=== PATIENT | female | born 1995 | race Hispanic/Latino ===

== ENCOUNTER 2019-03-12 21:16 | Observation (INO) | payer SELFPAY ==
[~2019-03-12] VITALS: Ht 170.2 cm; Wt 117.9 kg
[2019-03-12 22:03] LABS: BASOPHILS # (AUTO) 0.1 (0.0-0.1); BASOPHILS % 0.9 % (0.0-1.0); EOSINOPHILS # (AUTO) 0.1 (0.0-0.4); EOSINOPHILS % 1.9 % (0.0-6.0); HEMATOCRIT 24.3 % (34.2-44.1); LYMPHOCYTES # (AUTO) 2.5 (1.0-3.2); LYMPHOCYTES % 36.9 % (18.0-39.1); MEAN CORPUSCULAR HEMOGLOBIN 15.4 pg (28-32); MEAN CORPUSCULAR HGB CONC 25.9 g/dL (31-35); MEAN CORPUSCULAR VOLUME 59.3 fL (81-99); MONOCYTES # (AUTO) 0.6 (0.2-0.8); MONOCYTES % 9.2 % (4.4-11.3); NEUTROPHILS # (AUTO) 3.5 (2.1-6.9); PLATELET COUNT 321 x10e3/uL (140-360); RED CELL DISTRIBUTION WIDTH 22.4 % (11.7-14.4)
[2019-03-12 22:06] LABS: HEMOGLOBIN 6.3 g/dL (12.0-16.0)
--- NOTE | 2019-03-12 22:06 | NUR ---
DR. MELGAR AND Sheila STEWART RN NOTIFIED AND AWARE OF CRITICAL LAB VALUE; HGB 6.3.
[2019-03-12 22:15] LABS: ALANINE AMINOTRANSFERASE 15 IU/L (0-55); ALBUMIN 3.3 g/dL (3.5-5.0); ALBUMIN/GLOBULIN RATIO 0.8 (0.8-2.0); ALKALINE PHOSPHATASE 93 IU/L (40-150); ANION GAP 12.8 mmol/L (8-16); BLOOD UREA NITROGEN 13 mg/dL (7-26); BUN/CREATININE RATIO 19 (6-25); CALCIUM 8.8 mg/dL (8.4-10.2); CARBON DIOXIDE 25 mmol/L (22-29); CHLORIDE 104 mmol/L (98-107); CREATINE KINASE 31 IU/L (29-168); CREATININE, SERUM 0.69 mg/dL (0.57-1.11); EST GLOMERULAR FILTRATION RATE > 60 ML/MIN (60-); GLUCOSE 88 mg/dL (74-118); POTASSIUM 3.8 mmol/L (3.5-5.1); SODIUM 138 mmol/L (136-145)
[2019-03-12] MEDS ORDERED: ASPIRIN 81 MG CHEW TAB PO ONE (22:15)
[2019-03-12] MEDS ORDERED: SODIUM CHLORIDE 0.9% 250ML 250 ML IV ONE (22:15)
--- NOTE | 2019-03-12 22:41 | Diagnostic Imaging Report ---
Examination: CT head without contrast Clinical Indication: Dizziness. Technique: Transaxial noncontrast images from the skull base through the vertex were obtained. Sagittal and coronal reformatted images were done. Dose modulation, iterative reconstruction, and/or weight based adjustment of the mA/kV was utilized to reduce the radiation dose to as low as reasonably achievable. Comparison: None. Findings: Scalp: No abnormalities. Bones: Intact. No fractures. No blastic or lytic lesions. Brain sulci: Appropriate for patient's age. Ventricles: Normal in size and configuration. No hydrocephalus. Extra-axial space: No abnormalities. Parenchyma: No abnormal densities. No masses, hemorrhage, or acute or chronic cortical based vascular insults. Suprasellar region: No abnormalities. Craniocervical junction: The foramen magnum is patent. No Chiari one malformation. Impression: No intracranial abnormality. Signed by: Dr. Nalini Block M.D. on 03/12/2019 10:38 PM
--- OUTSIDE RECORDS SUMMARY | 2019-03-12 23:02 | XMS REPORT ---
Author Author [facility] Address Unknown Phone Unavailable Care Team Providers Care Hauling Contractor Name Role Phone RAMÓN YO Unavailable Unavailable Problems This patient has no known problems. Allergies, Adverse Reactions, Alerts This patient has no known allergies or adverse reactions. Medications This patient has no known medications. Results Test Description Test Time Test Comments Text Results Atomic Results Result Comments CT BRAIN WO 2019-03-12 22:36:00 [place] [address] Patient Name: CHRIS HUGGINS MR #: [id number] : 1995 Age/Sex: 23/F Req #: [id number] Adm Physician: Ordered by: YO MELGAR DO Report #: [id number] Location: ER Room/Bed: Procedure: [id number] CT/CT BRAIN WO Exam Date: Exam Time: REPORT STATUS: Signed Examination: CT head without contrast Clinical Indication: Dizziness. Tech nique: Transaxial noncontrast images from the skull base through the vertex were obtained. Sagittal and coronal reformatted images were done. Dose modulation, iterative reconstruction, and/or weight based adjustment of the mA/kV was utilized to reduce the radiation dose to as low as reasonably achievable. Comparison: None. Findings: Scalp: No abnormalities. Bones: Intact. No fractures. No blastic or lytic lesions. Brain sulci: Appropriate for patient's age. Ventricles: Normal in size and configuration. No hydrocephalus. Extra-axial space: No abnormalities. Parenchyma: No abnormal densities. No masses, hemorrhage, or acute or chronic cortical based vascular insults. Suprasellar region: No abnormalities. Craniocervical junction: The foramen magnum is patent. No Chiari one malformation. Impression: No intracranial abnormality. Signed by: Dr. Nalini Block M.D. on 03/12/2019 10:38 PM Dictated By: NALINI PEARSON MD 37 Transcribed By: NORIS on 03/12/192237 COPY TO: YO MELGAR DO
--- NOTE | 2019-03-12 23:17 | Diagnostic Imaging Report ---
EXAMINATION: CHEST SINGLE (PORTABLE) INDICATION: CHEST PAIN COMPARISON: None FINDINGS: TUBES and LINES: None. LUNGS: Lungs are well inflated. There are bibasilar atelectasis. There is no evidence of pneumonia or pulmonary edema. PLEURA: No pleural effusion or pneumothorax. HEART AND MEDIASTINUM: Cardiac size is mildly enlarged. BONES AND SOFT TISSUES: No acute osseous lesion. Soft tissues are unremarkable. UPPER ABDOMEN: No free air under the diaphragm. IMPRESSION: No acute thoracic abnormality. Signed by: Dr. Sheila Tate M.D. on 03/12/2019 11:13 PM
[2019-03-12 23:20] LABS: BILIRUBIN,URINE NEGATIVE (NEGATIVE); CLARITY,URINE CLOUDY (CLEAR); COLOR,URINE YELLOW (YELLOW); KETONES,URINE NEGATIVE (NEGATIVE); LEUKOCYTE ESTERASE ,URINE NEGATIVE (NEGATIVE); NITRITE,URINE POSITIVE (NEGATIVE); PROTEIN,URINE DIPSTICK NEGATIVE (NEGATIVE); URINE UROBILINOGEN 0.2 mg/dL (0.2 - 1)
[2019-03-12 23:33] LABS: AMPHETAMINES SCREEN,URINE NEGATIVE (NEGATIVE); BENZODIAZEPINES SCREEN,URINE NEGATIVE (NEGATIVE); PHENCYCLIDINE SCREEN,URINE NEGATIVE (NEGATIVE)
[2019-03-12 23:44] LABS: BACTERIA,URINE MANY /HPF
[2019-03-12 23:45] LABS: EPITHELIAL CELLS,URINE MODERATE /LPF
[2019-03-13] VITALS (9 sets, daily range): BP systolic 129–137; BP diastolic 69–80
--- NOTE | 2019-03-13 00:05 | NUR ---
Patient received from ER via stretcher accompanied by her mother. AAO x 4. Patient had no complaints of pain. Respirations even and non-labored. Admission history obtained. Initial physical assessment performed. Patient oriented to room, call light and plan of care. Fall precautions implemented. Patient instructed to call for assistance when needed. Call light within reach.
--- NOTE | 2019-03-13 00:20 | NUR ---
Patient informed of Blood transfusion due to low Hgb count (6.3). Patient voluntarily signed "Disclosure and Consent" form.
--- NOTE | 2019-03-13 02:34 | NUR ---
Blood products for transfusion not ready yet because there needs to be another waste minimization technician to verify blood product with the waste minimization technician currently working at the lab. Reason: New patient has not been cross-typed in this hospital before. Nursing metal cans supervisor notified of delay and informed Nurse that a laboratory sampler is on their way to the hospital to verify the blood shortly. Nurse awaiting verification.
--- NOTE | 2019-03-13 04:30 | NUR ---
All Around Gear Machine Operator called to confirm verification /tile picker of blood product.
[2019-03-13] MEDS ORDERED: SODIUM CHLORIDE 0.9% 250ML 250 ML ONE ×2 (04:42→17:16)
--- NOTE | 2019-03-13 05:00 | NUR ---
Blood transfusion started after bedside side verification with Nurse (Marija). Will continue to monitor.
[2019-03-13 05:25] LABS: CREATINE KINASE 21 IU/L (29-168)
[2019-03-13 05:45] LABS: % IRON SATURATION 2 % (15-50); IRON 10 ug/dL (50-170); TOTAL IRON BINDING CAPACITY 428 ug/dL (261-478); TRANSFERRIN 306 mg/dL (180-382)
[2019-03-13 06:05] LABS: FERRITIN < 1.00 ng/mL (4.63-204.00)
--- NOTE | 2019-03-13 06:23 | NUR ---
Dr. Cat paged regarding "Routine Consult". Reason: Anemia. Awaiting call back.
--- NOTE | 2019-03-13 07:00 | NUR ---
Blood transfusion completed. No adverse reaction noted. Vital signs WNL.
--- NOTE | 2019-03-13 07:00 | NUR ---
BEDSIDE SHIFT REPORT RECEIVED FROM THE OLEOMARGARINE MAKER RN. EDUCATED PT ABOUT FALL PRECAUTIONS. BED IS LOW AND LOCKED. CALL LIGHT WITH IN EASY REACH. INFORMED PT TO CALL FOR ANY NEEDS. PT VERBALIZED UNDERSTANDING. PT IS RECEIVING BLOOD TRANSFUSION AT THE MOMENT. 1 UNIT FINISHED PER THE OLEOMARGARINE MAKER RN. PT DENIES NEEDS AT THIS TIME.
--- NOTE | 2019-03-13 07:15 | NUR ---
Shift report given to oncoming nurse.
--- NOTE | 2019-03-13 08:04 | NUR ---
H&P cc: fatigue HPI: 23yoF, PCP none, developed fatigue, found to have severe anemia. Pt has had blood transfusion in past. Does have heavy menses, using about 5 pads per day for 7 days; No melena/hematochezia PMH: chronic anemia, menorrhagia PSHx: femur, gastric bypass Allergies; see emr FH/SH; single; no cigs; occ etoh meds; see MAR ROS: no f/c/s/N/V/D/SAMSON/vision changes/cp/sob/skin rash v/s; revd PE" tired appearing anicteric ns1s2 mod bs soft nt nd no e/t awake skin dry flat affect labs/meds; revd A/P: 23yoF Severe anemia Iron deficiency- severe Low vitB12 UTI Severe obesity BMI 40.7 PLAN IV iron IV vitB12 Blood stool occult blood Ceftriaxone for UTI SCd; PPI DIspo: Mahamed Ocampo MD, PhD
[2019-03-13 08:44] LABS: CHOL/HDL RATIO 3.7 (3.0-3.6)
[2019-03-13] MEDS ORDERED: SODIUM FERRIC GLUCONATE COMPLX 125 MG in SODIUM CHLORIDE 0.9% 100 ML 100 ML IV SCH ×3 (09:00→20:00)
[2019-03-13] MEDS: PANTOPRAZOLE 40 MG 10ML VIAL IV SCH (09:01)
[2019-03-13] MEDS: CEFTRIAXONE SOD 1 GM/NS 50 ML 50 ML IV SCH (09:05)
[2019-03-13] MEDS ORDERED: IRON DEXTRAN INJ 500 MG in SODIUM CHLORIDE 0.9% 500ML 500 ML IV PRN ×2 (09:15→13:30)
[2019-03-13] MEDS: CYANOCOBALAMIN INJ 1,000 MCG/ML VIAL IM SCH (10:00)
[2019-03-13 10:17] LABS: BASOPHILS % 0.4 % (0.0-1.0); EOSINOPHILS # (AUTO) 0.1 (0.0-0.4); EOSINOPHILS % 1.8 % (0.0-6.0); HEMATOCRIT 25.7 % (34.2-44.1); LYMPHOCYTES # (AUTO) 1.5 (1.0-3.2); LYMPHOCYTES % 33.9 % (18.0-39.1); MEAN CORPUSCULAR HEMOGLOBIN 16.3 pg (28-32); MEAN CORPUSCULAR HGB CONC 26.5 g/dL (31-35); MEAN CORPUSCULAR VOLUME 61.6 fL (81-99); MONOCYTES # (AUTO) 0.5 (0.2-0.8); MONOCYTES % 10.6 % (4.4-11.3); NEUTROPHILS # (AUTO) 2.4 (2.1-6.9); NEUTROPHILS % 53.1 % (38.7-80.0); PLATELET COUNT 301 x10e3/uL (140-360); RED BLOOD COUNT 4.17 x10e6/uL (3.6-5.1); RED CELL DISTRIBUTION WIDTH 25.3 % (11.7-14.4)
[2019-03-13 10:23] LABS: HEMOGLOBIN 6.8 g/dL (12.0-16.0)
[2019-03-13] MEDS ORDERED: DIPHENHYDRAMINE HCL INJ 25 MG in SODIUM CHLORIDE 0.9% 50ML 50 ML IV ONE ×2 (10:30→16:00)
[2019-03-13] MEDS ORDERED: FAMOTIDINE INJ 20 MG in SODIUM CHLORIDE 0.9% 50ML 50 ML IV ONE ×2 (10:30→16:00)
[2019-03-13] MEDS ORDERED: DEXAMETHASONE PHOS 10MG INJ 20 MG in SODIUM CHLORIDE 0.9% 50ML 50 ML IV ONE ×2 (11:00→16:30)
--- NOTE | 2019-03-13 11:10 | NUR ---
PAGED DR. ROSE REGARDING PRN TYLENOL, BENADRYL AND LASIX . NEW ORDER RECEIVED.
[2019-03-13 11:26] LABS: ANISOCYTOSIS SLIGHT; ELLIPTOCYTE, RBC SLIGHT; OVALOCYTES MODERATE; PLATELET ESTIMATE ADEQUATE; POIKILOCYTOSIS MODERATE; POLYCHROMASIA FEW
[2019-03-13] MEDS ORDERED: IRON DEXTRAN INJ 50 MG in SODIUM CHLORIDE 0.9% 100 ML IV ONE ×2 (11:30→17:00)
[2019-03-13] MEDS ORDERED: ACETAMINOPHEN 325 MG TAB PO PRN (11:30)
[2019-03-13] MEDS ORDERED: DIPHENHYDRAMINE HCL 25 MG CAP PO PRN (11:30)
--- NOTE | 2019-03-13 11:30 | NUR ---
PAGED LAB REGARDING SECOND UNIT OF BLOOD TRANSFUSION. BLOOD IS READY TO FARM OR RANCH ANIMAL CARETAKER PER LAB.
[2019-03-13] MEDS ORDERED: FUROSEMIDE INJ 10 MG/ML 2 ML VIAL IV ONE (12:00)
--- NOTE | 2019-03-13 12:00 | NUR ---
BLOOD PRODUCT VERIFIED AT THE LAB WITH SOILS TECHNICIAN.
--- NOTE | 2019-03-13 12:10 | NUR ---
PRIOR BLOOD TRANSFUSION VERIFICATION COMPLETED WITH TYSON PAZ.
--- NOTE | 2019-03-13 12:20 | NUR ---
BLOOD TRANSFUSION STARTED AFTER BEDSIDE VERIFICATION. PT DENIES NEEDS AT THIS TIME.
--- NOTE | 2019-03-13 14:53 | NUR ---
GAVE PACKET OF INFORMATION WITH [facility] [employer] FOR ASSISTANCE WITH LOW TO NO INCOME TO PATIENT. RESOURCES THAT PATIENT MAY BE ABLE TO FOLLOW UP UPON DISCHARGE. PT EDUCATED ON EACH RESOURCE AND UNDERSTANDING HOW TO FOLLOW UP TO SEE IF QUALIFIED FOR EACH RESOURCE.
--- NOTE | 2019-03-13 15:50 | NUR ---
BLOOD TRANSFUSION COMPLETED. NO ADVERSE REACTION NOTED. PT AAOX4. DENIES NEEDS AT THIS TIME.
[2019-03-13] MEDS ORDERED: FUROSEMIDE INJ 10 MG/ML 2 ML VIAL IV SCH (16:15)
[2019-03-13 18:24] LABS: CREATINE KINASE 17 IU/L (29-168)
--- NOTE | 2019-03-13 18:40 | NUR ---
PAGED DR. ROSE TO CONFIRM FERRLECIT SINCE IRON DEXTRAN ALREADY SCHEDULED FOR PT. CANCEL FERRLECIT PER DR. ROSE. INFORMED THE SAME TO PHARMACY.
--- NOTE | 2019-03-13 19:00 | NUR ---
BEDSIDE SHIFT REPORT GIVEN TO THE ROLL WINDER RN. PT DENIED FURTHER NEEDS.
[2019-03-14] VITALS: BP 144/72
[2019-03-14 04:51] VITALS: BP 120/69
[2019-03-14] MEDS ORDERED: VITAMIN B-121000 MC1 PO (06:19)
[2019-03-14] MEDS ORDERED: KEFLEX500 MG PO (06:19)
[2019-03-14] MEDS ORDERED: VITAMIN C500 M2 PO (06:19)
[2019-03-14] MEDS ORDERED: FERROUS SULFAT325 M1 PO (06:19)
[2019-03-14] MEDS ORDERED: PEPCID20 MG PO (06:19)
--- NOTE | 2019-03-14 06:21 | NUR ---
D/C summary Principal Dx: Severe anemia Iron deficiency- severe Low vitB12 UTI Severe obesity BMI 40.7 Secondary dx: Anemia PLAN IV iron IV vitB12 Blood stool occult blood Ceftriaxone for UTI SCd; PPI DIspo: d/c home f/u [facility] 1 week stable d/c>35mins Mahamed Ocampo MD, PhD
--- NOTE | 2019-03-14 07:00 | NUR ---
BEDSIDE SHIFT REPORT RECEIVED FROM THE RACE CAR MECHANIC RN. PT IS AAOX4. EDUCATED PT ABOUT FALL PRECAUTIONS. PT VERBALIZED UNDERSTANDING. CALL LIGHT WITH IN EASY REACH. BED IS LOW AND LOCKED. SIDE RAILS X2. PT DENIES NEEDS AT THIS TIME.
[2019-03-14 07:31] LABS: HEMATOCRIT 32.3 % (34.2-44.1); HEMOGLOBIN 8.8 g/dL (12.0-16.0)
[2019-03-14 08:00] VITALS: BP 140/90
[2019-03-14 08:47] VITALS: BP 140/90
[2019-03-14] MEDS ORDERED: CYANOCOBALAMIN INJ 1,000 MCG/ML VIAL IM SCH (09:00)
[2019-03-14] MEDS: CEFTRIAXONE SOD 1 GM/NS 50 ML 50 ML IV SCH (09:15)
[2019-03-14] MEDS: PANTOPRAZOLE 40 MG 10ML VIAL IV SCH (09:39)
[2019-03-14] MEDS: CYANOCOBALAMIN INJ 1,000 MCG/ML VIAL IM SCH (09:43)
--- NOTE | 2019-03-14 10:15 | NUR ---
IRON DEXTRAN 500 ML TRANSFUSION STARTED. PT DENIES NEEDS AT THIS TIME.
[2019-03-14 12:00] VITALS: BP 144/85
--- NOTE | 2019-03-14 12:45 | NUR ---
PAGED DR. ROSE AND REPORTED THE LAB VALUES.
--- NOTE | 2019-03-14 14:49 | NUR ---
PAGED DR. POWELL REGARDING PT DISCHARGE. WAITING FOR THE RESPONSE.
--- NOTE | 2019-03-14 15:30 | NUR ---
IRON TRANSFUSION COMPLETED. PT TOLERATED WELL. DENIES NEEDS AT THIS TIME. FAMILY AT BEDSIDE.
--- NOTE | 2019-03-14 15:45 | NUR ---
PAGED DR. ROSE TO CONFIRM THE D/C ORDER. CONDITIONAL D/C PER THE ORDER. WAITING FOR THE RESPONSE.
[2019-03-14 16:00] VITALS: BP 140/87
--- NOTE | 2019-03-14 16:39 | NUR ---
CALL BACK FROM DR. ROSE. NEW ORDER RECEIVED FOR H&H STAT RECEIVED.
--- NOTE | 2019-03-14 16:45 | NUR ---
LATISHA TO D/C PT PER DR. WOLFE.
--- NOTE | 2019-03-14 16:45 | NUR ---
Spoke with Dr. Parikh regarding clearance for discharge. MD informed that patient was clear to discharge
[2019-03-14 17:26] LABS: HEMATOCRIT 32.1 % (34.2-44.1); HEMOGLOBIN 8.8 g/dL (12.0-16.0)
--- NOTE | 2019-03-14 17:30 | NUR ---
PAGED DR. ROSE AND UPDATED THE HH VALUES. D/C PT PER DR. ROSE.
--- NOTE | 2019-03-14 18:00 | NUR ---
PT DISCHARGED HOME SAFELY WITH FAMILY. PT ESCORTED TO THE FRONT ENTRANCE. TELE, RAC, R WRIST IV'S REMOVED. TIP INTACT. DRESSING APPLIED.RX GIVEN. PT DENIED FURTHER NEEDS.
== END 2019-03-14 18:17 | disposition home or self-care (01) ==
LOC: ER 21:16 → ERHOLD 23:00 → MED/SURG2 23:36
PROVIDERS: ADMIT Internal Medicine; ATTEND Internal Medicine
DX: D62 Acute posthemorrhagic anemia (principal); E88.09 Other disorders of plasma-protein metabolism, not elsewhere classified; N39.0 Urinary tract infection, site not specified; E66.01 Morbid (severe) obesity due to excess calories; Z68.41 Body mass index [BMI] 40.0-44.9, adult
CPT/HCPCS: 36415 ×3; 36430; 70450; 71045; 80053; 80061; 80307; 81001; 82550 ×2; 82553 ×2; 82607; 82728; 82784 ×3; 83036; 83540; 84466; 84484 ×2; 84702; 85014; 85018; 85025 ×2; 85045; 85379; 86850; 86900; 86920; 93005; 99284; C9113 ×2; G0378 ×3; J0696 ×2; J1100; J1750; J1940; J2916; J3420 ×2; J7040; J7050 ×2; P9016; J1200